=== PATIENT | male | born 1965 | race American Indian/Alaskan Native ===

== ENCOUNTER 2024-09-05 06:38 | Inpatient (IN) | payer OTHER ==
[~2024-09-05] VITALS: Ht 180.3 cm; Wt 60.1 kg
[2024-09-05] VITALS (10 sets, daily range): BP systolic 109–136; BP diastolic 70–95
[2024-09-05 06:59] LABS: PH, VENOUS 7.404 (7.31-7.41)
[2024-09-05] MEDS ORDERED: ALBUTEROL SULFATE 0.5% 2.5 MG/0.5 ML VIAL INH ONE (07:00)
[2024-09-05] MEDS ORDERED: methylPREDNISolone SOD SUCC 125 MG/2 ML VIAL IV ONE (07:00)
[2024-09-05] MEDS ORDERED: ALBUTEROL/IPRATROPIUM 3 ML NEB INH ONE (07:00)
[2024-09-05 07:01] LABS: BASOPHILS 0.4 % (0.2-1.2); EOSINOPHILS 0.8 % (0.8-7.0); HEMATOCRIT 34.7 % (40.1-51.0); HEMOGLOBIN 11.2 g/dL (13.7-17.5); LYMPHOCYTES 12.8 % (21.8-53.1); MCH 27.9 PG (25.7-32.2); MCHC 32.3 g/dL (32.3-36.5); MCV 86.5 fL (79.0-92.2); MONOCYTES 7.2 % (5.3-12.2); NEUTROPHILS 78.4 % (34.0-67.9); PLATELET COUNT 226 K/uL (163-337); RBC 4.01 M/uL (4.63-6.08)
[2024-09-05 07:27] LABS: ALBUMIN 2.5 g/dL (3.4-5.0); ALBUMIN/GLOBULIN RATIO 0.68 (1.1-2.4); ANION GAP 10.8 (7-21); BILIRUBIN, TOTAL 0.4 mg/dL (0.2-1.0); BUN/CREATININE RATIO 17.8 (6.0-28.6); CREATININE, SERUM 1.46 mg/dL (0.70-1.30); POTASSIUM 3.8 mmol/L (3.5-5.1); PROTEIN, TOTAL 6.2 g/dL (6.4-8.2)
[2024-09-05 07:27] LABS: CORONAVIRUS COVID-19 AG NEGATIVE (NEGATIVE)
[2024-09-05] MEDS ORDERED: FUROSEMIDE 20 MG/2 ML VIAL IV ONE (07:45)
[2024-09-05] MEDS ORDERED: ALBUTEROL SULFATE 0.083% 3 ML VIAL INH PRN (08:30)
[2024-09-05] MEDS ORDERED: ondansetron HCL 4 MG/2 ML VIAL IV PRN ×2 (08:30→10:45)
[2024-09-05] MEDS ORDERED: ACETAMINOPHEN 325 MG TAB PO PRN ×2 (08:30→10:45)
[2024-09-05] MEDS ORDERED: FUROSEMIDE 40 MG/4 ML VIAL IV SCH (09:00)
[2024-09-05] MEDS ORDERED: NICOTINE 21 MG/24 HR 1 EA TDSY TD SCH (10:04)
[2024-09-05] MEDS ORDERED: POTASSIUM CHLORIDE 10 MEQ TABCR PO ONE (10:45)
[2024-09-05] MEDS ORDERED: IPRATROPIU0.2 MG/1 M INH (11:24)
[2024-09-05] MEDS ORDERED: ALBUTEROL2.5 MG/3 M INH (11:26)
[2024-09-05] MEDS ORDERED: SYMBICORT 80-10.2 GM INH (11:26)
[2024-09-05] MEDS ORDERED: OMEPRAZOLE20 MG PO (11:29)
[2024-09-05 11:45] LABS: BILIRUBIN, URINE NEGATIVE (negative); BLOOD/HGB, URINE NEGATIVE (Negative); KETONE, URINE NEGATIVE (Negative); LEUK ESTERASE, URINE NEGATIVE (negative); NITRITE, URINE NEGATIVE (negative); PH, URINE 5.5 (5-7)
[2024-09-05] MEDS ORDERED: ALDACTONE25 MG PO (11:53)
[2024-09-05] MEDS ORDERED: NEURONTIN100 MG PO (11:54)
[2024-09-05] MEDS ORDERED: ROSUVASTATIN CA20 MG PO (11:54)
[2024-09-05 11:56] LABS: BACTERIA, URINE NONE SEEN /hpf (negative); CASTS, URINE NONE SEEN \\lpf; COLLECTION TYPE, URINE CLEAN CATCH; CRYSTALS, URINE NONE SEEN (0-1+); EPITHELIAL CELLS, URINE 0 /lpf (0-1+); RED BLOOD CELLS, URINE 0-1 /hpf (0-5); REFLEX CULTURE, URINE No (No); WHITE BLOOD CELLS, URINE 0-1 /HPF (0-5)
[2024-09-05] MEDS ORDERED: LASIX40 MG PO (11:59)
[2024-09-05] MEDS ORDERED: ALBUTEROL/IPRATROPIUM 3 ML NEB INH SCH ×2 (12:00→20:00)
[2024-09-05] MEDS ORDERED: MORPHINE SULFATE 4 MG/ML VIAL IV ONE (12:00)
[2024-09-05] MEDS ORDERED: PHARMACY RENAL DOSE ADJUSTMENT 1 DOSE MISC PO SCH (12:00)
[2024-09-05] MEDS ORDERED: COREG6.25 MG PO (12:04)
[2024-09-05] MEDS ORDERED: ADULT ASPIRIN R81 MG PO (12:04)
[2024-09-05] MEDS ORDERED: ZESTRIL10 MG PO (12:04)
--- NOTE | 2024-09-05 12:33 | EKG ---
[facility] [address] [facility] [place] [address] Signed Sinus rhythm with frequent premature ventricular complexes and fusion complexes Left anterior fascicular block Minimal voltage criteria for LVH, may be normal variant ( Eugene product ) Nonspecific T wave abnormality Prolonged QT Abnormal ECG Confirmed by Nacho San MD ([id number]) on 09/05/2024 12:32:55 PM Electronically Signed By: NACHO SAN MD 09/05/24 1233 PATIENT NAME: KALYANI SIDHU Electrocardiogram DATE OF : 69 PHYSICIAN: NACHO SAN MD REPORT #: [id number] REPORT IS CONFIDENTIAL AND NOT TO BE RELEASED WITHOUT AUTHORIZATION
[2024-09-05] MEDS ORDERED: POLYETHYLENE GLYCOL 3350 1 PACKET PO SCH (12:37)
--- NOTE | 2024-09-05 13:26 | EKG ---
[facility] [address] [facility] [place] [address] Signed Sinus rhythm with frequent premature ventricular complexes T wave abnormality, consider inferolateral ischemia Prolonged QT Abnormal ECG When compared with ECG of 05-SEP-2024 06:38, (Unconfirmed) fusion complexes are no longer present T wave inversion now evident in Inferior leads T wave inversion now evident in Anterior leads Confirmed by Rosalie San MD ([id number]) on 09/05/2024 1:26:08 PM Electronically Signed By: ROSALIE SAN MD 09/05/24 1326 PATIENT NAME: KALYANI SIDHU Electrocardiogram DATE OF : 69 PHYSICIAN: ROSALIE SAN MD REPORT #: [id number] REPORT IS CONFIDENTIAL AND NOT TO BE RELEASED WITHOUT AUTHORIZATION
[2024-09-05] MEDS ORDERED: FUROSEMIDE 40 MG/4 ML VIAL IV ONE (14:00)
[2024-09-05] MEDS ORDERED: methylPREDNISolone SOD SUCC 125 MG/2 ML VIAL IV SCH (14:00)
[2024-09-05] MEDS ORDERED: MORPHINE SULFATE 4 MG/ML VIAL IV PRN (16:45)
[2024-09-05] MEDS ORDERED: ALBUTEROL/IPRATROPIUM 3 ML NEB ONE (19:40)
[2024-09-06] VITALS (12 sets, daily range): BP systolic 103–144; BP diastolic 60–105
[2024-09-06 05:21] LABS: BASOPHILS 0.1 % (0.2-1.2); EOSINOPHILS 0 % (0.8-7.0); HEMATOCRIT 34.5 % (40.1-51.0); HEMOGLOBIN 11.4 g/dL (13.7-17.5); LYMPHOCYTES 5.5 % (21.8-53.1); MCH 27.5 PG (25.7-32.2); MCV 83.3 fL (79.0-92.2); MONOCYTES 4.8 % (5.3-12.2); NEUTROPHILS 89.1 % (34.0-67.9); PLATELET COUNT 252 K/uL (163-337); RBC 4.14 M/uL (4.63-6.08)
[2024-09-06 05:32] LABS: SMEAR REVIEW BLOOD SEE COMMENTS
[2024-09-06 05:40] LABS: ALBUMIN 2.3 g/dL (3.4-5.0); ALBUMIN/GLOBULIN RATIO 0.59 (1.1-2.4); ANION GAP 11.2 (7-21); BILIRUBIN, TOTAL 0.2 mg/dL (0.2-1.0); BUN/CREATININE RATIO 20.95 (6.0-28.6); CALCIUM 7.9 mg/dL (8.5-10.1); CREATININE, SERUM 1.67 mg/dL (0.70-1.30); MAGNESIUM 1.9 mg/dL (1.8-2.4); POTASSIUM 4.2 mmol/L (3.5-5.1); PROTEIN, TOTAL 6.2 g/dL (6.4-8.2)
[2024-09-06] MEDS ORDERED: ENOXAPARIN SODIUM 40 MG/0.4 ML SYR SUB-Q SCH (09:00)
[2024-09-06] MEDS ORDERED: GABAPENTIN 100 MG CAP PO PRN (13:30)
[2024-09-06] MEDS ORDERED: carvediloL 6.25 MG TAB PO SCH (21:00)
[2024-09-07] VITALS (10 sets, daily range): BP systolic 96–136; BP diastolic 55–100
[2024-09-07] MEDS ORDERED: ALBUTEROL SULFATE 0.083% 3 ML VIAL ONE (00:09)
[2024-09-07] MEDS ORDERED: ALBUTEROL SULFATE 0.083% 3 ML VIAL INH PRN (00:15)
[2024-09-07 05:33] LABS: BASOPHILS 0.2 % (0.2-1.2); EOSINOPHILS 0.7 % (0.8-7.0); HEMATOCRIT 34.2 % (40.1-51.0); HEMOGLOBIN 11.3 g/dL (13.7-17.5); LYMPHOCYTES 24.3 % (21.8-53.1); MCH 27.6 PG (25.7-32.2); MCV 83.6 fL (79.0-92.2); MONOCYTES 8.2 % (5.3-12.2); NEUTROPHILS 66.2 % (34.0-67.9); PLATELET COUNT 249 K/uL (163-337); RBC 4.09 M/uL (4.63-6.08)
[2024-09-07 05:50] LABS: ALBUMIN 2.4 g/dL (3.4-5.0); ALBUMIN/GLOBULIN RATIO 0.63 (1.1-2.4); ANION GAP 9.7 (7-21); BILIRUBIN, TOTAL 0.3 mg/dL (0.2-1.0); BUN/CREATININE RATIO 26.38 (6.0-28.6); CALCIUM 8.1 mg/dL (8.5-10.1); CREATININE, SERUM 1.44 mg/dL (0.70-1.30); MAGNESIUM 1.9 mg/dL (1.8-2.4); POTASSIUM 4.7 mmol/L (3.5-5.1); PROTEIN, TOTAL 6.2 g/dL (6.4-8.2)
[2024-09-07] MEDS ORDERED: PANTOPRAZOLE SODIUM 40 MG TABEC PO SCH (09:00)
[2024-09-07] MEDS ORDERED: ASPIRIN 81 MG TABEC PO SCH (09:00)
[2024-09-07] MEDS ORDERED: FUROSEMIDE 40 MG TAB PO SCH (09:00)
[2024-09-07] MEDS ORDERED: SENNOSIDES/DOCUSATE 1 EA TAB PO SCH (09:34)
[2024-09-07] MEDS ORDERED: bisacodyL 10 MG SUPP PR PRN (09:45)
[2024-09-07] MEDS ORDERED: SIMETHICONE 80 MG CHEW PO PRN (09:45)
[2024-09-08] MEDS ORDERED: EPINEPHRINE 2.25% 0.5 ML AMP INH PRN (03:30)
[2024-09-08 05:14] VITALS: BP 126/95
[2024-09-08 05:16] LABS: BASOPHILS 0.5 % (0.2-1.2); EOSINOPHILS 1.3 % (0.8-7.0); HEMATOCRIT 34.6 % (40.1-51.0); HEMOGLOBIN 11.3 g/dL (13.7-17.5); LYMPHOCYTES 22.4 % (21.8-53.1); MCH 27.1 PG (25.7-32.2); MCHC 32.7 g/dL (32.3-36.5); MONOCYTES 9.3 % (5.3-12.2); NEUTROPHILS 66.2 % (34.0-67.9); PLATELET COUNT 251 K/uL (163-337); RBC 4.17 M/uL (4.63-6.08)
[2024-09-08 05:47] LABS: ALBUMIN 2.4 g/dL (3.4-5.0); ALBUMIN/GLOBULIN RATIO 0.65 (1.1-2.4); ANION GAP 10.3 (7-21); BILIRUBIN, TOTAL 0.3 mg/dL (0.2-1.0); BUN/CREATININE RATIO 22.5 (6.0-28.6); CALCIUM 8.3 mg/dL (8.5-10.1); CREATININE, SERUM 1.6 mg/dL (0.70-1.30); POTASSIUM 4.3 mmol/L (3.5-5.1); PROTEIN, TOTAL 6.1 g/dL (6.4-8.2)
[2024-09-08 09:19] VITALS: BP 105/67
[2024-09-08 10:20] VITALS: BP 105/67
[2024-09-08] MEDS ORDERED: BENZONATATE100 MG PO (12:21)
[2024-09-08] MEDS ORDERED: JARDIANCE10 MG PO (12:26)
== END 2024-09-08 13:00 | disposition home or self-care (01) | DRG 291 ==
LOC: ED 06:38 → EDBD 10:03 → MS 10:03
PROVIDERS: Family Medicine; ADMIT Student in an Organized Health Care Education/Training Program; ATTEND Student in an Organized Health Care Education/Training Program
DX: I11.0 Hypertensive heart disease with heart failure (principal); I50.23 Acute on chronic systolic (congestive) heart failure; J44.1 Chronic obstructive pulmonary disease with (acute) exacerbation; F17.210 Nicotine dependence, cigarettes, uncomplicated; K21.9 Gastro-esophageal reflux disease without esophagitis; I25.10 Atherosclerotic heart disease of native coronary artery without angina pectoris; M79.2 Neuralgia and neuritis, unspecified; I49.3 Ventricular premature depolarization; I44.4 Left anterior fascicular block; R14.0 Abdominal distension (gaseous); F12.90 Cannabis use, unspecified, uncomplicated; Z89.611 Acquired absence of right leg above knee; Z95.0 Presence of cardiac pacemaker; Z79.899 Other long term (current) drug therapy; Z79.82 Long term (current) use of aspirin; D64.9 Anemia, unspecified; Z86.718 Personal history of other venous thrombosis and embolism
CPT/HCPCS: 36415; 70491; 71045; 71046; 74018; 76700; 80053; 81001; 82803; 83735; 83880; 84484; 85025; 85060; 93005; 93010; 94640; 94667; 94668; 94760; 94799; 96374; 96375; 96376; 99285-25; A9270; J1650; J1938; J2270; J2919; Q9967